=== PATIENT | female | born 1970 | race Caucasian/White ===

== ENCOUNTER 2017-11-20 21:42 | Outpatient (REF) | payer BC, SELFPAY ==
[2017-11-20 22:17] LABS: Hemoglobin A1C 5.6 % (4.5-6.2)
[2017-11-20 22:28] LABS: TSH 4.73 uIU/mL (0.358-3.74)
== END 2017-11-20 22:02 ==
LOC: NCHCN 21:42
PROVIDERS: PCP Family Medicine; Visit Provider Family Medicine
DX: E03.9 Hypothyroidism, unspecified (principal); E66.9 Obesity, unspecified
CPT/HCPCS: 83036; 84443

== ENCOUNTER 2018-02-03 15:14 | Outpatient (REF) | payer BC, SELFPAY ==
[2018-02-03 22:16] LABS: TSH 0.35 uIU/mL (0.358-3.74)
== END 2018-02-03 15:34 ==
LOC: NCHCN 15:14
PROVIDERS: PCP Family Medicine; Visit Provider Family Medicine
DX: E03.9 Hypothyroidism, unspecified (principal)
CPT/HCPCS: 84443

== ENCOUNTER 2018-05-20 09:36 | Outpatient (REF) | payer BC, SELFPAY ==
[2018-05-20 22:15] LABS: HCT 26.7 % (36.0-46.0); Mean Corp. HGB Concentration 26.2 g/dL (32.0-36.0); Mean Corpuscular Hemoglobin 17.2 pg (27.0-33.0); Mean Corpuscular Volume 65.8 fL (80-95); Mean Platelet Volume 11.3 fL (8.0-11.0); Platelet Count 386 x1000/uL (130-400); RBC 4.06 m/cumm (4.00-5.20); RBC Distribution Width 18.1 % (11.7-14.6)
[2018-05-20 22:32] LABS: TSH 0.91 uIU/mL (0.358-3.74)
[2018-05-20 23:01] LABS: Hemoglobin A1C 5.6 % (4.5-6.2)
== END 2018-05-20 09:56 ==
LOC: NCHCN 09:36
PROVIDERS: PCP Family Medicine; Visit Provider Family Medicine
DX: N92.0 Excessive and frequent menstruation with regular cycle (principal); E66.9 Obesity, unspecified; E03.9 Hypothyroidism, unspecified
CPT/HCPCS: 85027; 83036; 84443

== ENCOUNTER 2018-05-27 14:24 | Emergency (ER) | payer BC, SELFPAY ==
[2018-05-27] VITALS (17 sets, daily range): BP systolic 137–156; BP diastolic 81–87; PULSE 58–72; RESP 10–24; TEMP 36.7; O2SAT 96–100
[2018-05-27] MEDS: Lactated Ringers 1,000 ML 1000 ML IV (15:15)
--- NOTE | 2018-05-27 15:17 | ED.GENADUL_ITS ---
Discharge Plan Disposition Patient Disposition: HOME Condition: Improving Discharge Details Chief Complaint: Dizzy/Sync Clinical Impression: Anemia, Headache Primary Care Provider: Rony Stallings ED Provider: Jeremie Rg Home Meds and New Rx's Prescriptions: No Action bupropion HCl [Wellbutrin SR] 100 MG tablet extended release 12 hr 75 mg PO TID RF: 0 Iud RF: 0 levothyroxine 175 mcg Tablet 175 mcg PO 5XW RF: 0 aspirin [Aspir-81] 81 mg Tablet,Delayed Release (Dr/Ec) 81 mg PO DAILY RF: 0 levothyroxine 200 mcg Tablet 200 mcg PO Q2D RF: 0 ferrous sulfate 324 mg (65 mg iron) Tablet,Delayed Release (Dr/Ec) 324 mg PO BID RF: 0 Discharge Instructions Instructions: Anemia (ED), General Headache (ED) Additional Instructions: 1. Drink plenty of fluids. 2. Continue all medications as prescribed including iron supplements. 3. Acetaminophen 1000mg every 4 hours (up to 5 time a day) as needed for fever or pain. Return to the Emergency Department (ED) if your condition worsens, does not improve as expected, or for ANY other concerns. Specifically, return if you have new or uncontrolled pain, worsening fever, difficulty breathing, vomiting, or ar e unable to drink fluids. Medical Decision Making 47-year-old woman with a history of iron deficiency anemia and recent heavy menses referred for progressive weakness today associated with a recently low hemoglobin level. Had felt clinically improved after starting iron supplementation with improved ADLs. However, today has had a low-grade headache, mild vertigo, and is more fatigued than the previous 2 days. Nonfocal exam including a full normal neurological exam. Hemoglobin today improved at 7.9 (previous 7.0). Also clinically improved after receiving IV crystalloid and oral acetaminophen. Discharged home with a plan for continued iron supplementation, acetaminophen as needed, aggressive hydration, and outpatient follow-up. Pt evaluated immediately prior to discharge with improved symptoms, normal vital signs, and tolerating PO. The patient feels appropriate for discharge home. Discussed clinical/diagnostic findings. Discharged with a clear plan for outpatient follow up. Given usual and customary return instructions prior to discharge. Medical Records Medical records reviewed: Yes I reviewed the patient's medical records. Lab Data Lab results narrative: Laboratory Results - last 24 hr WBC 4.67 k/cumm (4.4-10.8) 05/27/18 15:13 RBC 4.27 m/cumm (4.00-5.20) 05/27/18 15:13 Hgb 7.9 g/dL (12.0-15.5) L 05/27/18 15:13 Hct 28.9 % (36.0-46.0) L 05/27/18 15:13 MCV 67.7 fL (80-95) L 05/27/18 15:13 MCH 18.5 pg (27.0-33.0) L 05/27/18 15:13 MCHC 27.3 g/dL (32.0-36.0) L 05/27/18 15:13 RDW 22.1 % (11.7-14.6) H 05/27/18 15:13 Plt Count 418 x1000/uL (130-400) H 05/27/18 15:13 MPV 10.5 fL (8.0-11.0) 05/27/18 15:13 Immature Gran % 0.4 05/27/18 15:13 Neutrophils % 54.2 05/27/18 15:13 Lymphocytes % 33.0 05/27/18 15:13 Monocytes % 8.4 05/27/18 15:13 Eosinophils % 3.4 05/27/18 15:13 Basophils % 0.6 05/27/18 15:13 Absolute Neutrophils 2.53 k/cumm (1.2-6.7) 05/27/18 15:13 Absolute Lymphocytes 1.54 k/cumm (1.2-3.4) 05/27/18 15:13 Absolute Monocytes 0.39 k/cumm (0.11-0.7) 05/27/18 15:13 Absolute Eosinophils 0.16 k/cumm (0.0-0.7) 05/27/18 15:13 Absolute Basophils 0.03 k/cumm (0.0-0.2) 05/27/18 15:13 RBC Morphology See below 05/27/18 15:13 Polychromasia Present 05/27/18 15:13 Hypochromasia 2+ 05/27/18 15:13 Anisocytosis 1+ 05/27/18 15:13 Microcytosis 2+ 05/27/18 15:13 Macrocytosis 1+ 05/27/18 15:13 Stomatocytes 2+ 05/27/18 15:13 HPI 47-year-old woman with a recent diagnosis of iron deficiency anemia. Had presented to her PCP with progressive fatigue and exertional limitation as well as 2 months of extremely heavy menses. Her evaluation had been significant for significant anemia and she was prescribed iron supplementation. Since starting this medication, she has felt clinically improved and noted decrease exertional limitation over the past 3 days. However today, she has a low-grade headache, mild vertigo, and feels more fatigued. She denies fever/chills, neck pain, focal extremity weakness, difficulty with gait, difficulty with speech. She has noted mild difficulty with vision over the past weeks associated with her anemia which felt subjectively worse. Denies dyspnea/cough, chest pain or palpitations, abdominal pain, change in bowel habits, or urinary symptoms. She complete her menses 1 week ago and has had no vaginal bleeding or spotting General Date/Time Provider Initiated Documentation: 05/27/18 14:53 . Related Data Home Medications Medication Instructions Recorded Confirmed Iud 08/31/15 bupropion HCl [Wellbutrin Sr] 75 mg PO TID 06/07/16 05/27/18 aspirin [Aspir-81] 81 mg PO DAILY 05/27/18 05/27/18 ferrous sulfate 324 mg PO BID 05/27/18 05/27/18 levothyroxine 175 mcg PO 5XW 05/27/18 05/27/18 levothyroxine 200 mcg PO Q2D 05/27/18 05/27/18 Allergies Allergy/AdvReac Type Severity Reaction Status Date / Time shellfish derived Allergy Unverified 05/27/18 14:40 General Stated Complaint: Dizzy/Sync STACY: 3 Review of Systems Review of Systems All systems are reviewed and are unremarkable except as noted in HPI and below: CONSTITUTIONAL: no fevers/chills, mild fatigue. EYES: no change in vision HEENT: no throat pain or difficulty swallowing; no neck pain CARDIOVASCULAR: no chest pain, palpitations, leg swelling, or diaphoresis RESPIRATORY: no cough, dyspnea, wheezing GASTROINTESTINAL: no abdominal pain, melena, nausea/emesis GENITOURINARY: no dysuria, flank pain, MUSCULOSKELETAL: no pack pain, myalgias, arthralgias INTEGUMENTARY: no rash, no wounds NEUROLOGIC: Mild generalized headache and subjective vertigo, no focal weakness, difficulty with speech, numbness, or difficulty with coordination PSYCHIATRIC: no confusion, no anxiety HEME: no easy bruising or bleeding ALLERGIC: no urticaria PFSH Social History Smoking/Tobacco Use Status: Never Drug use: Occasionally Substance use type: marijuana Do you feel safe at home: Yes Do you feel safe in your relationship?: Yes Exam Narrative Exam Narrative: Nursing note and vital signs have been reviewed and noted. GENERAL: alert, active, no acute distress, well -hydrated, well-nourished HEENT: atraumatic/normocephalic, PERRLA, EOMI, conjunctiva clear, external ears/canals normal, nasal mucosa normal NECK: supple, full range of motion, no mass, normal lymphadenopathy, no thyromegaly CARDIOVASCULAR: RRR, no murmurs, nl pulses, no edema PULMONARY: nl effort, no audible wheezing or stridor, nl breath sounds with no focal deficit. no chest wall tenderness ABDOMEN: soft, non-tender, non-distended, no mass, no organomegaly EXTREMITY: normal muscle tone, all joints with FROM, no deformity or tenderness SKIN: no exanthem appreciated NEURO: gross motor exam normal, normal stance and gait; negative Romberg, negative cerebellar. PSYCH: alert and oriented, Course Vital Signs Temperature 98.1 F 05/27/18 14:33 Pulse 65 05/27/18 14:33 Respiratory Rate 15 05/27/18 14:33 Blood Pressure 156/84 H 05/27/18 14:33 Pulse Oximetry 100 05/27/18 14:33 Temperature 98.1 F 05/27/18 14:33 Temperature Source Temporal Artery Scan 05/27/18 14:33 Pulse 65 05/27/18 14:33 Respiratory Rate 15 05/27/18 14:33 Respiratory Effort Non-Labored 05/27/18 14:39 Blood Pressure 156/84 H 05/27/18 14:33 Blood Pressure Position Supine 05/27/18 14:33 Pulse Oximetry 100 05/27/18 14:33 Oxygen Delivery Method Room Air 05/27/18 14:33 Oxygen Flow Rate 0 05/27/18 14:33 Pain Level 4 05/27/18 14:33
[2018-05-27] MEDS: Acetaminophen 325 MG TAB 1000 MG PO (15:20)
[2018-05-27 15:32] LABS: Abs Immature Grans 0.02 k/cumm (0.0-0.09); Absolute Basophil Count 0.03 k/cumm (0.0-0.2); Absolute Eosinophil Count 0.16 k/cumm (0.0-0.7); Absolute Lymphocyte Count 1.54 k/cumm (1.2-3.4); Absolute Monocyte Count 0.39 k/cumm (0.11-0.7); Absolute Neutrophil Count 2.53 k/cumm (1.2-6.7); Basophils % 0.6; Eosinophils % 3.4; HCT 28.9 % (36.0-46.0); HGB 7.9 g/dL (12.0-15.5); Immature Grans % 0.4; Mean Corp. HGB Concentration 27.3 g/dL (32.0-36.0); Mean Corpuscular Hemoglobin 18.5 pg (27.0-33.0); Mean Corpuscular Volume 67.7 fL (80-95); Mean Platelet Volume 10.5 fL (8.0-11.0); Monocytes % 8.4; Neutrophils % 54.2; Platelet Count 418 x1000/uL (130-400); RBC 4.27 m/cumm (4.00-5.20); RBC Distribution Width 22.1 % (11.7-14.6); White Blood Cell Count 4.67 k/cumm (4.4-10.8)
[2018-05-27 16:05] LABS: Anisocytosis 1+; Hypochromasia 2+; Macrocytosis 1+; Microcytosis 2+
[2018-05-27 16:06] LABS: Polychromasia Present; Stomatocytes 2+
== END 2018-05-27 16:33 | disposition home or self-care (01) ==
PROVIDERS: Emergency Provider Emergency Medicine; PCP Family Medicine
DX: D64.9 Anemia, unspecified (principal); R51 Headache
CPT/HCPCS: 36415; 96360; 99283; 85025

== ENCOUNTER 2018-06-11 09:42 | Outpatient (CLI) | payer BC, SELFPAY ==
[2018-06-11 10:14] LABS: HCT 37.2 % (36.0-46.0)
== END 2018-06-11 10:02 ==
PROVIDERS: PCP Family Medicine; Visit Provider Family Medicine
DX: N92.0 Excessive and frequent menstruation with regular cycle (principal)
CPT/HCPCS: 36415; 85014; 85018

== ENCOUNTER 2018-11-18 21:59 | Outpatient (REF) | payer BC, SELFPAY ==
[2018-11-18 21:44] LABS: HCT 35.3 % (36.0-46.0); HGB 10.9 g/dL (12.0-15.5); Mean Corp. HGB Concentration 30.9 g/dL (32.0-36.0); Mean Corpuscular Hemoglobin 24.7 pg (27.0-33.0); Mean Platelet Volume 10.8 fL (8.0-11.0); Platelet Count 353 x1000/uL (130-400); RBC 4.41 m/cumm (4.00-5.20); RBC Distribution Width 13.1 % (11.7-14.6); White Blood Cell Count 5.31 k/cumm (4.4-10.8)
[2018-11-18 22:25] LABS: ALT 25 U/L (14-59); AST 17 U/L (15-37); Albumin 3.5 g/dL (3.4-5.0); Alkaline Phosphatase 71 U/L (46-116); Anion Gap 5.2 mmol/L (3-11); BUN 16 mg/dL (7-18); Bilirubin, Total 0.3 mg/dL (0.2-1.0); CO2 27.8 mmol/L (21.0-32.0); CREATININE 0.82 mg/dL (0.55-1.02); Calcium 8.6 mg/dL (8.5-10.1); Calculated LDL 125 mg/dL; Chloride 104 mmol/L (98-107); Cholesterol 198 mg/dL (50-200); Glucose 101 mg/dL (70-100); HDL Cholesterol 47 mg/dL (40-60); Potassium 4.5 mmol/L (3.5-5.1); Sodium 137 mmol/L (136-145); TSH 2.93 uIU/mL (0.36-3.74); Total Protein 7.1 g/dL (6.4-8.2); Triglyceride 130 mg/dL (30-150)
== END 2018-11-18 22:19 ==
LOC: NCHCN 21:59
PROVIDERS: PCP Family Medicine; Visit Provider Family Medicine
DX: Z00.00 Encounter for general adult medical examination without abnormal findings (principal); E03.9 Hypothyroidism, unspecified; D64.9 Anemia, unspecified; E66.9 Obesity, unspecified
CPT/HCPCS: 80053; 80061; 85027; 84443

== ENCOUNTER 2018-11-24 00:59 | Outpatient (CLI) | payer BC, SELFPAY ==
--- NOTE | 2018-11-24 14:42 | DI.MAMMO_ITS ---
SYMPTOMS/DIAGNOSIS: SCREENING, Z12.31 MAMMOGRAM: Mammograms were interpreted according to the usual protocol including computer analysis with CAD system, tomosynthesis and C view imaging. The breast tissue is of moderate radiodensity. There is no evidence of a mass. There are no suspicious calcifications and there has been no significant interval change when compared with prior images. SUMMARY: No evidence of malignancy, category 1. Yearly screening mammography is recommended. Breast density category B. SA ASSESSMENT OF FINDINGS: Negative. Category 1. Patient will receive a letter notifying them of these results. BI-RADS category B. There are scattered areas of fibroglandular density.
== END 2018-11-24 01:19 ==
PROVIDERS: PCP Family Medicine; Visit Provider Family Medicine
DX: Z12.31 Encounter for screening mammogram for malignant neoplasm of breast (principal)
CPT/HCPCS: 77063; 77067

== ENCOUNTER 2019-07-28 16:37 | Outpatient (REF) | payer BC, SELFPAY ==
[2019-07-28 20:48] LABS: HCT 30.8 % (36.0-46.0); HGB 8.9 g/dL (12.0-15.5)
[2019-07-28 21:07] LABS: TSH 1.21 uIU/mL (0.36-3.74)
== END 2019-07-28 16:57 ==
LOC: NCHCN 16:37
PROVIDERS: PCP Family Medicine; Visit Provider Family Medicine
DX: E03.9 Hypothyroidism, unspecified (principal); D64.9 Anemia, unspecified; N92.0 Excessive and frequent menstruation with regular cycle
CPT/HCPCS: 84443; 85014; 85018

== ENCOUNTER 2019-09-07 01:45 | Outpatient (CLI) | payer BC, SELFPAY ==
--- NOTE | 2019-09-07 06:45 | DI.US_ITS ---
EXAM: US PELVIS TRANSVAGINAL CLINICAL HISTORY: dysfunctional uterine bleeding, N93.8. TECHNIQUE: Transabdominal and transvaginal pelvic ultrasound was performed using standard protocol. COMPARISON: No exams were available for comparison FINDINGS: KIDNEYS: Kidneys are symmetric in size. No evidence of renal calculi. No evidence of hydronephrosis. No renal mass or cyst identified. UTERUS: Position: Anteverted. Size: 12 long by 6.9 AP by 8.1 transverse cm Endometrium: 1.4 cm. There is a 0.7 x 0.6 cm echogenic nodule in the fundal aspect of the endometrium . This is suspicious for an endometrial polyp. An intrauterine device was not visualized on this ex amination. Myometrium: Heterogeneous myometrium with several hypoechoic masses present consistent with uterine f ibroids. Cervix: Nabothian cysts. OVARIES: Right: 3.5 x 2 x 1.7 cm Cyst or mass: 1.9 x 1.3 x 1.5 cm simple cyst. Left: 2.7 x 1.8 x 1.9 cm Cyst or mass: None. DOPPLER: Color: Symmetric and uniform flow to both ovaries. No hyperemia. Duplex: Normal ovarian arterial waveforms visualized. CUL-DE-SAC: Free fluid: Small amount of free fluid in the cul-de-sac and adjacent to the right ovary. Other: None. IMPRESSION: 1. Normal sonographic appearance of the kidneys. 2. Findings suspicious for 0.7 cm endometrial polyp. 3. Uterine fibroids. 4. 1.9 cm right ovarian cyst. 5. IUD not visualized on today's examination. DATA REPOSITORY:
== END 2019-09-07 02:05 ==
PROVIDERS: PCP Family Medicine; Visit Provider Obstetrics & Gynecology
DX: N93.8 Other specified abnormal uterine and vaginal bleeding (principal); D25.9 Leiomyoma of uterus, unspecified; N83.291 Other ovarian cyst, right side; N84.0 Polyp of corpus uteri
CPT/HCPCS: 76830; 76856

== ENCOUNTER 2019-09-08 15:53 | Outpatient (CLI) | payer BC, SELFPAY ==
--- NOTE | 2019-09-08 15:30 | DI.RAD_ITS ---
EXAM: 2D digital imaging was performed. CLINICAL HISTORY: Missing IUD, strings lost, [id number]. COMPARISON: No exams were available for comparison TECHNIQUE: Supine and uprightSupine and Lateral views of the abdomen was performed. FINDINGS: The lung bases are clear. No organomegaly is present. The bowel gas pattern is nonspecific without evidence of obstruction. No radiopaque foreign bodies are identified. An IUD is not visualized. Mi ld degenerative changes are seen in the lower lumbar spine. IMPRESSION: No evidence of an acute abdomen. DATA REPOSITORY: RADIATION DOSE DELIVERED:
== END 2019-09-08 16:13 ==
PROVIDERS: PCP Family Medicine; Visit Provider Obstetrics & Gynecology
DX: T83.32XA Displacement of intrauterine contraceptive device, initial encounter (principal)
CPT/HCPCS: 74019

== ENCOUNTER 2019-09-21 01:38 | Outpatient (CLI) | payer BC, SELFPAY ==
[2019-09-21 11:43] LABS: Mean Corpuscular Volume 68.8 fL (80-95); Mean Platelet Volume 9.7 fL (8.0-11.0); Platelet Count 406 x1000/uL (130-400); RBC 4.36 m/cumm (4.00-5.20); RBC Distribution Width 18.7 % (11.7-14.6); White Blood Cell Count 4.08 k/cumm (4.4-10.8)
[2019-09-21 11:45] LABS: HGB 8.7 g/dL (12.0-15.5)
== END 2019-09-21 01:58 ==
PROVIDERS: PCP Family Medicine; Visit Provider Obstetrics & Gynecology
DX: N93.8 Other specified abnormal uterine and vaginal bleeding (principal); D25.9 Leiomyoma of uterus, unspecified; N84.0 Polyp of corpus uteri; Z01.818 Encounter for other preprocedural examination; Z01.812 Encounter for preprocedural laboratory examination
CPT/HCPCS: 36415; 85027; 86850; 86900; 86901

== ENCOUNTER 2019-09-21 09:12 | Outpatient (CLI) | payer BC, SELFPAY ==
[2019-09-22 01:18] LABS: COVID-19 RT-PCR UVMMC Result Negative (Negative)
== END 2019-09-21 09:32 ==
PROVIDERS: PCP Family Medicine; Visit Provider Obstetrics & Gynecology
DX: Z01.818 Encounter for other preprocedural examination (principal); Z11.59 Encounter for screening for other viral diseases
CPT/HCPCS: U0003

== ENCOUNTER 2019-09-23 07:39 | Day surgery (SDC) | payer BC, SELFPAY ==
[2019-09-23 07:45] VITALS: BP 134/83; PULSE 72; RESP 18; TEMP 36.6; O2SAT 99
[2019-09-23] MEDS: Lactated Ringers 1,000 ML 125 ML IV (08:10)
[2019-09-23] MEDS: Lidocaine 2% Jelly 6 ML SYR (09:45)
--- NOTE | 2019-09-23 09:51 | CER_PTH ---
PATIENT: Miya Okeefe LOC: [facility] U#:[id number] AGE/SX: 48/F ROOM: RE09/23/[address]: Lois Carey DO : 1970 BED: DIS: 09/23/2019 SPEC #: [id number] RECD: 09/23/19 12:14 STATUS: TOSHA RE #: [id number] FRANK: 09/23/19 09:[address]: Lois Carey DEPT: Surgical Specimen RECD BY: Soraya Melgoza ENTERED: 09/23/19 12:17 SP TYPE: CER OTHR DR: Rony Stallings Tissues: 1 - CERVICAL BIOPSY 2 - ENDOCERVICAL BX/CURRETTE 3 - ENDOMETRIUM BX/CURRETTE Procedures: GROSS AND MICRO LEVEL 4 Comments: [id number]
--- NOTE | 2019-09-23 10:08 | W.PM.OP ---
Date of service: 09/23/19 Time of Service: 10:08 Operative Note Operative Note DATE OF PROCEDURE: 09/23/19 PRE-OP DIAGNOSIS: Abnormal uterine bleeding, Fibroid uterus, cervical polyp, anemia POST-OP DIAGNOSIS: same PROCEDURE: Cervical polypectomy. Hysterosopcy with dilation and curettage SURGEON: Lois Carey ANESTHESIA: MAC ESTIMATED BLOOD LOSS: 10 PATHOLOGY: other (1. Cervical polyp 2. Endocervical curettage 3. Endometrial curettage) COMPLICATIONS: None Patient was transported to: PACU Patient's condition: stable Indications: Abnormal uterine bleeding, uterine fibroids, cervical polyp, symptomatic anemia Findings: Broad-based cervical polyp, normal endocervical canal, plush endometrium, bulky uterus approximately 10 to 12 weeks size with multiple uterine fibroids Procedure Description: Risks and benefits of surgical procedure explained to the patient in full informed consent was obtained preoperatively. She was taken there operating suite with an IV running where she is placed in the knee dorsal supine position and anesthesia administered via monitored anesthesia care. She was then placed in the modified dorsal lithotomy position and prepped and draped in usual sterile fashion with legs in yellowfin stirrups. At this point exam under anesthesia revealed a bulky uterus that was approximately 10 to 12 weeks size mobile and irregular. Bladder was drained for approximately 100 cc of clear yellow urine. Speculum was placed in the vaginal vault. Cervical polyp identified and with electrocautery at 40 polyp was excised. Base the polyp was cauterized and hemostatic. At this point cervical loss dilated to the point that a 5 mm flexible hysteroscope could be passed with ease. With saline installation and expection of the endometrial cavity the cavity was noted to be irregular and distorted due to intramural uterine fibroids. Cavity itself remained relatively smooth surfaced with no evidence of endometrial polyps noted. At this point sharp endocervical curettage was performed followed by sharp endometrial curettage. There was reinspection of the cervical polypectomy base which was again cauterized with electrocautery and found to be hemostatic. At this point single-tooth tenaculum and speculum were both removed patient returned to the dorsal supine position and woke from anesthesia with ease. She is taken to recovery room in stable condition. EBL: 10 cc Complications: None apparent Specimens: 1. Endocervical polyp 2. Endocervical curettage 3. Endometrial curettage
[2019-09-23 10:49] VITALS: BP 130/87; PULSE 58; RESP 16; TEMP 36.2; O2SAT 100
== END 2019-09-23 11:35 | disposition home or self-care (01) ==
PROVIDERS: PCP Family Medicine; Visit Provider Obstetrics & Gynecology
PROC: 0UDB8ZZ Extraction of Endometrium, Via Natural or Artificial Opening Endoscopic (ICD-10-PCS; CPT 58558; principal; 2019-09-23 14:00)
DX: N93.8 Other specified abnormal uterine and vaginal bleeding (principal); N84.1 Polyp of cervix uteri; N84.0 Polyp of corpus uteri; D25.1 Intramural leiomyoma of uterus; D64.9 Anemia, unspecified
CPT/HCPCS: 58558; 81025; 88305; J1100; J2001; J2250; J2405; J3010

== ENCOUNTER 2019-10-23 03:38 | Outpatient (CLI) | payer BC, SELFPAY ==
[2019-10-23 14:13] LABS: HCT 33.4 % (36.0-46.0); HGB 9.5 g/dL (11.2-15.7); MCH 20.1 pg (27.0-33.0); MCHC 28.4 % (32.0-36.0); MCV 70.8 fL (80-95); MPV 10.1 fL (8.0-11.0); Platelet Count 408 10^3/uL (130-400); RBC 4.72 10^6/uL (3.93-5.22); RDW 17.6 % (11.7-14.6); RDW-SD 44.3 fL; WBC 6.65 10^3/uL (4.4-10.8)
[2019-10-23 14:28] LABS: HCG Qual (Urine) Negative
== END 2019-10-23 03:58 ==
PROVIDERS: PCP Family Medicine; Visit Provider Obstetrics & Gynecology
DX: Z01.818 Encounter for other preprocedural examination (principal)
CPT/HCPCS: 36415; 85027; 86850; 86900; 86901; 81025

== ENCOUNTER 2019-10-24 07:28 | Outpatient (CLI) | payer BC, SELFPAY ==
[2019-10-26 15:26] LABS: COVID-19 RT-PCR Result NEGATIVE (Negative)
== END 2019-10-24 07:48 ==
PROVIDERS: PCP Family Medicine; Visit Provider Obstetrics & Gynecology
DX: Z01.818 Encounter for other preprocedural examination (principal)
CPT/HCPCS: U0003

== ENCOUNTER 2019-10-28 13:06 | Observation (INO) | payer BC, SELFPAY ==
[2019-10-28] VITALS (15 sets, daily range): BP systolic 90–152; BP diastolic 34–89; PULSE 50–69; RESP 12–19; TEMP 36.5–36.8; O2SAT 94–100
[2019-10-28] MEDS: Lactated Ringers 1,000 ML 125 ML IV (09:07)
[2019-10-28] MEDS: ceFAZolin 2 GM/50 ML BAG IVPB (09:13)
[2019-10-28] MEDS: Bupivacaine 0.25% Pres-Free 30 ML VIAL (09:38)
--- NOTE | 2019-10-28 12:07 | UTER_PTH ---
PATIENT: Miya Okeefe LOC: [facility] U#:[id number] AGE/SX: 48/F ROOM: OBS.306 RE10/28/[address]: Lois Carey DO : 1970 BED: A DIS: 10/29/2019 SPEC #: [id number] RECD: 10/28/19 17:45 STATUS: SOUT REQ #: [id number] FRANK: 10/28/19 12:[address]: Lois Carey DEPT: Surgical Specimen RECD BY: Prema Dawkins ENTERED: 10/28/19 17:46 SP TYPE: UTER OTHR DR: Rony Stallings Tissues: 1 - UTERUS W OR W/O OVARIES(NOT TUMOR/PROLAPSE) Procedures: GROSS AND MICRO LEVEL 5 Comments: [id number]
--- NOTE | 2019-10-28 13:12 | DI.RAD_ITS ---
EXAM: 2D digital imaging was performed. CLINICAL HISTORY: INCORRECT COUNT. COMPARISON: No exams were available for comparison TECHNIQUE: Supine views of the abdomen performed. FINDINGS: BOWEL GAS PATTERN: Nondistended. Presumed postsurgical air seen in the low pelvis. CALCIFICATIONS: No radiopaque calcifications. OSSEOUS STRUCTURES: Normal for age. OTHER FINDINGS: No retained surgical instruments are visible. IMPRESSION: No evidence retained surgical instrument or other radiopaque foreign body. DATA REPOSITORY: RADIATION DOSE DELIVERED:
--- NOTE | 2019-10-28 13:50 | W.PM.OP ---
Date of service: 10/28/19 Time of Service: 13:50 Operative Note Operative Note DATE OF PROCEDURE: 10/28/19 PRE-OP DIAGNOSIS: Fibroid uterus, abnormal uterine bleeding, symptomatic anemia POST-OP DIAGNOSIS: same PROCEDURE: Laparoscopically assisted vaginal hysterectomy with bilateral salpingectomy and intraoperative cystoscopy SURGEON: Lois Carey ASSISTING SURGEON: Robert Lockhart ANESTHESIA: GETA ESTIMATED BLOOD LOSS: 200 PATHOLOGY: other (Uterus and bilateral fallopian tubes) COMPLICATIONS: None Patient was transported to: PACU Patient's condition: stable Implants: None Indications: Symptomatic uterine fibroids with abnormal uterine bleeding and symptomatic anemia Findings: 12 weeks size bulky fibroid uterus normal-appearing fallopian tubes bilaterally, normal-appearing ovaries bilaterally Procedure Description: Patient is a 48-year-old female with ongoing heavy uterine bleeding. She had previously had a Mirena IUD and this had apparently been expelled. Her uterus was noted to be approximately 10 to 12 weeks size. She had a preoperative hysteroscopy with dilation and curettage for endometrial sampling which was benign. She requested definitive therapy. She had ongoing heavy bleeding with symptomatic anemia and a ab of hemoglobin to 8.7. Risk benefits and alternatives of the procedure have been explained to the patient including risk of infection, bleeding, injury to surrounding organs, risk of anesthesia, risk of thromboembolic event, need for open laparotomy. Full informed consent was obtained. Patient was taken the operating suite with an IV running where she was placed in the dorsal supine position after intrathecal narcotics placed for postoperative pain control. She had endotracheal intubation for performed for the administration of general anesthesia with ease. She was then placed in the modified dorsal lithotomy position and prepped and draped in the usual sterile fashion. Kapoor catheter was inserted for continuous bladder drainage. Exam under anesthesia revealed a 10 to 12-week size bulky uterus that was moderately mobile. At this point weighted speculum was placed in the posterior vaginal vault and single-tooth tenaculum used to grasp the anterior lip of the cervix. A [employer] uterine manipulator was placed inside into the uterus with cup inserted around the cervix. Tenaculum and weighted speculum were then removed and attention was turned to the abdomen. At this point quarter percent Marcaine with epinephrine was used to infiltrate at the umbilicus and a 10 mm vertical umbilical incision was made. The fascia was then identified tented up and entered sharply and a Martinez trocar was placed within. Camera inserted and CO2 gas used to insufflate to a maximum pressure of 15 mmHg. Visualizing the abdomen and pelvis, the uterus was noted to be globular, approximately 10 to 12 weeks size, though moderately mobile. Fallopian tubes appeared normal bilaterally as did the ovaries. There was noted to be endometriosis implants along the left broad ligament posterior to the uterus. Appendix appeared normal. Remainder of the abdomen was atraumatic. At this point a second and third right and left lower quadrant trocar sites were placed under direct visualization after infiltration with quarter percent Marcaine. This allowed instrumentation to be placed into the abdomen. The abdomen again inspected and found to be hemostatic. The uterus was then elevated and the right fallopian tube identified tented up and suspensory ligament was cauterized and transected. The left round ligament was identified cauterized and transected allowing exposure to the left broad ligament anterior and posterior leaf. The left utero-ovarian ligament was also identified cautery transected. Anterior leaf of the broad ligament was then elevated and the bladder flap was created. Similar procedure was carried out on the right fallopian tube, right round ligament, and right broad ligament. The vesicouterine peritoneum was identified tented up and with both meticulous sharp and blunt dissection of the bladder flap was then created. Due to the with ingrowth of the uterus decision was made to transect uterine pedicles and vessels from a vaginal approach. At this point CO2 gas was discontinued and attention was turned to the vaginal vault. Weighted speculum was placed into the posterior vaginal vault the anterior and posterior lips of the cervix were grasped with a Pari clamp and a circumferential incision was made at the cervical vaginal interface. There is a slight amount of difficulty entering the posterior cul-de-sac and attention was returned to the anterior cul-de-sac which was entered sharply. Uterosacral cardinal complex ligaments were clamped transected and ligated and with modest amount of effort posterior cul-de-sac was then entered. The uterine artery pedicles were then clamped transected and ligated in a systematic fashion around the bulky lower uterine segment of the uterus. Due to the size of the uterus itself the uterus was morcellated intravaginally in order to allow delivery of the uterus through the vaginal vault. At this point pedicles were inspected and found to be hemostatic the vaginal cuff was closed using 0 Vicryl suture in a running locked fashion. Cystoscopic examination was then performed of the bladder after indigo carmine was placed intravascularly. Both ureteric orifices were noted and spilling blue-tinged urine efficiently there was no evidence of trauma or damage to the bladder itself. Cystoscopy was then discontinued. At this point attention was then returned to the abdomen where pneumoperitoneum re-created with a maximum pressure of 15 mmHg all pedicles were inspected there was one pedicle at the left uterine artery complex which had a mild amount of ooze which was cauterized and found to be hemostatic. Abdomen was then irrigated with copious amounts of normal saline all pedicles again reinspected at low pressure of 5 mmHg and noted to be hemostatic. At this point the procedure was terminated CO2 gas discontinued and abdomen desufflated. All instruments were removed from the abdomen fascial incision was then closed with the Vicryl ties placed for the Martinez skin incisions were then closed with 4-0 Vicryl suture and Steri-Strips. Patient was returned to the dorsal supine position. During the postprocedural counts there was noted to be 1 forcep that was not accounted for and a postoperative x-ray ordered. There was no evidence of retained foreign body present on x-ray films and may estimation was that this was the initial miscount of instrumentation. At this point patient was returned to the post anesthesia care unit with a Kapoor catheter draining blue-tinged urine in stable condition.
[2019-10-28] MEDS: Lactated Ringers 1,000 ML 80 ML IV (14:20)
--- NOTE | 2019-10-28 17:54 | W.PM.PROGNOT ---
Date of Service Date of service: 10/28/19 Time of Service: 17:54 Assessment and Plan Assessment and plan (1) S/P laparoscopic assisted vaginal hysterectomy (LAVH): Status: Acute Assessment and plan: Postop day #0 status post laparoscopically assisted vaginal hysterectomy with bilateral salpingectomy for enlarged fibroid uterus, abnormal uterine bleeding, and symptomatic anemia. She is doing well. She will be seen again tomorrow morning. She will have routine postoperative care with progressive ambulation, advancement of diet, and pain control as needed. If she continues to progress in a normal course my anticipation would be for discharge home tomorrow. Subjective Subjective Interval history since last seen: Patient seen this evening after her surgery. She is feeling great. She has no pain. Her vital signs are stable. Her urine output is adequate. She has ordered a regular diet for dinner tonight. Overall she is doing well. Exam Narrative Exam Narrative: Miya is alert and oriented with stable vital signs. She is having no concerns. Compression stockings are in place and working effectively. She will ambulate later today. Kapoor catheter will be removed tomorrow. Objective Objective Clinical Data: Vital Signs Temperature 98.2 F 10/28/19 16:27 Temperature Source Oral 10/28/19 16:27 Pulse 51 L 10/28/19 17:29 Pulse Rhythm Regular 10/28/19 07:49 Respiratory Rate 16 10/28/19 17:29 Respiratory Depth Normal 10/28/19 07:49 Blood Pressure 113/63 10/28/19 17:29 Pulse Oximetry 98 10/28/19 17:29 Respiratory End-tidal CO2 34 10/28/19 14:20 Oxygen Delivery Method Room Air 10/28/19 17:29 Oxygen Flow Rate 0 10/28/19 17:29 Pain Level 0 10/28/19 17:29 Intake & Output 10/27/19 10/28/19 10/28/19 23:59 11:59 23:59 Intake Total 50 / 970 920 / 970 Output Total 250 / 250 Balance 50 / 720 670 / 720 Weight 216 lb 7.903 oz Intake: IV 50 / 950 900 / 950 Oral Output: Estimated Blood Loss 250 / 250 Other: Urine Color Yellow Urine Appearance Clear Emesis Description None
[2019-10-28] MEDS: Docusate Sodium 100 MG CAP PO (19:07)
[2019-10-28] MEDS: Ketorolac 30 MG/ML VIAL IVP (19:07)
[2019-10-29] MEDS: Ketorolac 30 MG/ML VIAL IVP ×2 (01:21→06:20)
[2019-10-29 01:49] VITALS: BP 112/57; PULSE 64; RESP 18; TEMP 36.6; O2SAT 100
[2019-10-29] MEDS: Normal Saline Flush 10 ML SYR IV (06:21)
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
--- NOTE | 2019-10-29 07:44 | W.PM.DS.N ---
Date of service: 10/29/19 Time of Service: 07:44 DS: Diagnosis Discharge Diagnosis (1) S/P laparoscopic assisted vaginal hysterectomy (LAVH): Status: Acute Discharge Plan Disposition Patient Disposition: HOME Condition: Good Discharge Details Reason For Visit: LAVH Admit Date/Time: 10/28/19 13:06 Admit Provider: Lois Carey Attending Provider: Lois Carey Primary Care Provider: Rony Stallings Hospital Course Hospital Course: Patient was admitted for laparoscopically assisted vaginal hysterectomy with bilateral salpingectomy for bulky fibroid uterus, pelvic discomfort, abnormal uterine bleeding, and symptomatic anemia. Her surgical procedure was uncomplicated. She had a remote unremarkable postoperative course and was discharged home postoperative day #1, ambulating, tolerating regular diet and oral pain medication. Home Meds and New Rx's Prescriptions: New docusate sodium [Colace] 100 mg capsule 100 mg PO DAILY Qty: 30 RF: 0 hydrocodone-acetaminophen [Crawford] 5-325 mg tablet 1 tab PO Q8H PRN (Reason: pain) Qty: 14 RF: 0 Continued ferrous sulfate 325 mg (65 mg iron) tablet 325 mg PO DAILY PRNRF: 0 bupropion HCl [Wellbutrin SR] 100 mg tablet sustained-release 12 hr 75 mg PO TID PRNRF: 0 levothyroxine 200 mcg tablet 200 mcg PO DAILY RF: 0 acetaminophen 500 mg Tablet 500 mg PO PRN PRNRF: 0 ibuprofen 600 mg Tablet 600 mg PO PRN PRNRF: 0 ibuprofen 800 mg tablet 800 mg PO Q8H PRNQty: 20 RF: 0 Discontinued norethindrone acetate [Aygestin] 5 mg tablet 5 mg PO DAILY Qty: 60 RF: 0 Discharge Instructions Instructions: Hysteroscopy (DC) Activity:: Activity as Tolerated Equipment/Supplies:: No Equipment Needed Diet:: Normal Diet Discharge Orders Discharge Orders: Discharge Order (Routine); Ordered 10/29/19 Ordered By: Lois Carey Discharge Data Discharge Comment: [facility]up with [facility] 2 weeks. DS: Summary Status at Discharge Functional status at discharge: independent ambulation Overall status at discharge: patient is back to baseline Mental Status: mental status grossly normal Speech and Movement: speech and movement normal Mood: congruent mood Affect: normal affect Exam Narrative Exam Narrative: See progress note dated today Psych Mental Status: mental status grossly normal Speech and Movement: speech and movement normal Mood: congruent mood Affect: normal affect DS: Data Vitals/I&O Vitals and I&O: Vital Signs Temperature 98 F 10/29/19 01:49 Temperature Source Tympanic 10/29/19 01:49 Pulse 64 10/29/19 01:49 Pulse Rhythm Regular 10/28/19 20:23 Respiratory Rate 18 10/29/19 01:49 Respiratory Effort 10/28/19 20:23 Respiratory Depth Normal 10/28/19 20:23 Respiratory Pattern Normal 10/28/19 20:23 Blood Pressure 112/57 L 10/29/19 01:49 Pulse Oximetry 100 10/29/19 01:49 Respiratory End-tidal CO2 34 10/28/19 14:20 Oxygen Delivery Method Room Air 10/29/19 01:49 Oxygen Flow Rate 0 10/29/19 01:49 Pain Level 2 10/29/19 06:20 Intake & Output 10/28/19 10/28/19 10/29/19 11:59 23:59 11:59 Intake Total 50 / 1070 1020 / 1070 1785 / 1785 Output Total 250 / 250 1200 / 1200 Balance 50 / 820 770 / 820 585 / 585 Weight 216 lb 7.903 oz Intake: IV 50 / 950 900 / 950 785 / 785 Oral 120 / 120 1000 / 1000 Output: Urine 1200 / 1200 Estimated Blood Loss 250 / 250 Other: Urine Color Yellow Pale Urine Appearance Clear Clear Emesis Description None PFSH Medical History Depression (Chronic) DUB (dysfunctional uterine bleeding) (Acute) Endocervical polyp (Acute) Endometrial polyp (Acute) Hypoglycemia (Acute) Hypothyroidism (Chronic) IUD complication (Acute) IUD contraception (Acute) Pre-op testing (Acute) Sebaceous cyst (Acute) scalp, removed 09/15/18 Dr Lilibeth Garrison, no path sent Uterine fibroid (Acute) Surgical History (Updated 10/28/19 @ 17:56 by Lois Carey DO) History of dilatation and curettage (Acute) S/P laparoscopic assisted vaginal hysterectomy (LAVH) (Acute) Social History Smoking/Tobacco Use Status: Never Alcohol Intake: current Alcohol Intake frequency: a few times a month Alcohol type: wine Drug use: Occasionally Substance use type: marijuana Do you feel safe at home: Yes Do you feel safe in your relationship?: Yes
[2019-10-29 07:45] VITALS: BP 125/77; PULSE 48; RESP 16; TEMP 37.6; O2SAT 100
[2019-10-29] MEDS: Docusate Sodium 100 MG CAP PO (08:45)
== END 2019-10-29 09:40 | disposition home or self-care (01) ==
LOC: OBS 16:35
PROVIDERS: Admitting Provider Obstetrics & Gynecology; PCP Family Medicine; Visit Provider Obstetrics & Gynecology
PROC: 0UT9FZZ Resection of Uterus, Via Natural or Artificial Opening With Percutaneous Endoscopic Assistance (ICD-10-PCS; CPT 58554; principal; 2019-10-28 09:00)
DX: N93.8 Other specified abnormal uterine and vaginal bleeding (principal); D50.0 Iron deficiency anemia secondary to blood loss (chronic); D25.2 Subserosal leiomyoma of uterus; N83.8 Other noninflammatory disorders of ovary, fallopian tube and broad ligament; N72 Inflammatory disease of cervix uteri; Z90.710 Acquired absence of both cervix and uterus
CPT/HCPCS: 58554; 99232; 99238; 74018; 88307; J0690; J1100; J1885; J2001; J2250; J2405; J2704; J3010

== ENCOUNTER 2019-11-24 10:32 | Outpatient (REF) | payer BC, SELFPAY ==
[2019-11-24 21:27] LABS: HCT 34.1 % (36.0-46.0); HGB 9.4 g/dL (11.2-15.7); MCH 19.3 pg (27.0-33.0); MCHC 27.6 % (32.0-36.0); Platelet Count 381 10^3/uL (130-400); RBC 4.87 10^6/uL (3.93-5.22); RDW 16.3 % (11.7-14.6); RDW-SD 41.2 fL; WBC 4.64 10^3/uL (4.4-10.8)
[2019-11-24 21:48] LABS: CREATININE 0.85 mg/dL (0.55-1.02); Glucose 101 mg/dL (74-106); TSH 0.26 uIU/mL (0.36-3.74)
[2019-11-25 17:32] LABS: Hemoglobin A1C 5.7 % (<5.7)
== END 2019-11-24 10:52 ==
LOC: NCHCN 10:32
PROVIDERS: PCP Family Medicine; Visit Provider Family Medicine
DX: Z00.00 Encounter for general adult medical examination without abnormal findings (principal); E03.9 Hypothyroidism, unspecified; R73.01 Impaired fasting glucose; D64.9 Anemia, unspecified
CPT/HCPCS: 82947; 85027; 82565; 83036; 84443

== ENCOUNTER 2020-02-29 02:15 | Outpatient (CLI) | payer BC, SELFPAY ==
[2020-02-29 11:40] LABS: HGB 14.6 g/dL (11.2-15.7)
[2020-02-29 11:58] LABS: Hemoglobin A1C 5.3 % (<5.7)
[2020-02-29 12:28] LABS: TSH 5.36 uIU/mL (0.36-3.74)
== END 2020-02-29 02:35 ==
PROVIDERS: PCP Family Medicine; Visit Provider Family Medicine
DX: D64.9 Anemia, unspecified (principal); E03.9 Hypothyroidism, unspecified; R73.01 Impaired fasting glucose
CPT/HCPCS: 36415; 83036; 84443; 85014; 85018

== ENCOUNTER 2020-11-18 14:33 | Outpatient (REF) | payer BC, SELFPAY ==
[2020-11-18 14:59] LABS: Hemoglobin A1C 5.2 % (<5.7)
[2020-11-18 15:08] LABS: ALT 23 U/L (14-59); AST 15 U/L (15-37); Albumin 3.5 g/dL (3.4-5.0); Alkaline Phosphatase 73 U/L (46-116); Anion Gap 10.4 mmol/L (3-11); BUN 17 mg/dL (7-18); Bilirubin, Total 0.5 mg/dL (0.2-1.0); CO2 23.6 mmol/L (21.0-32.0); CREATININE 0.8 mg/dL (0.55-1.02); Calcium 8.8 mg/dL (8.5-10.1); Calculated LDL 145 mg/dL (<100); Chloride 104 mmol/L (98-107); Cholesterol 219 mg/dL (<200); Glucose 105 mg/dL (74-106); HDL Cholesterol 49 mg/dL (40-60); Potassium 4.1 mmol/L (3.5-5.1); Sodium 138 mmol/L (136-145); TSH 0.32 uIU/mL (0.36-3.74); Total Protein 7.1 g/dL (6.4-8.2); Triglyceride 125 mg/dL (<150)
== END 2020-11-18 14:34 | disposition home or self-care (01) ==
LOC: NCHCN 14:33
PROVIDERS: PCP Family Medicine; Visit Provider Family Medicine
DX: E03.9 Hypothyroidism, unspecified (principal); E66.9 Obesity, unspecified; R73.01 Impaired fasting glucose; Z00.00 Encounter for general adult medical examination without abnormal findings
CPT/HCPCS: 80053; 80061; 83036; 84443

== ENCOUNTER 2021-08-11 08:58 | Day surgery (SDC) | payer BC, SELFPAY ==
--- NOTE | 2021-08-10 20:26 | PDOC.DSDIS_ITS ---
Discharge Plan Disposition Patient Disposition: HOME Condition: Good Discharge Details Reason For Visit: colon scope Attending Provider: Madhavi Richards Primary Care Provider: Rony Stallings Home Meds and New Rx's Prescriptions: Continued levothyroxine 200 mcg capsule 200 mcg PO .complex Rx Instructions: one tab by mouth Saturday, Saturday, , Saturday bupropion HCl 75 mg tablet 75 mg PO BID Rx Instructions: administer 6 hours apart ibuprofen 800 mg tablet 800 mg PO Q8H PRNQty: 20 0RF Discontinued bisacodyl [Dulcolax (bisacodyl)] 5 mg tablet,delayed release (DR/EC) 5 mg PO ONCE Qty: 4 0RF Rx Instructions: Take according to provider's instructions for colonoscopy prep. polyethylene glycol 3350 17 gram/dose powder 17 g PO ONCE Qty: 238 0RF Rx Instructions: To be taken as directed by prescriber's office for colonoscopy prep. Discharge Instructions Additional Instructions: DSU Colonoscopy Post- Op Instructions Instructions for Everyone who is given Anesthesia: For your safety, please do the following for the next twenty-four (24) hours: *Do Not operate a motor vehicle (car, truck, motorcycle, etc.) *Do Not drink alcoholic beverages or use any recreational drugs for the first 24 hours or while taking pain medications. The medications in your body may have a reaction that can be dangerous. *Do Not make any important decisions or sign any important papers. Findings: Normal Follow up: Repeat in 10 yrs time 1. No lifting over 20 pounds or strenuous activity for the first 24 hours after your procedure. After 24 hours there are no restrictions on your activity but you may feel fatigued for a few days. 2. After you arrive home you may have a light meal and return to your normal diet as you can tolerate it without feeling sick to your stomach. 3. You may have a bloated, gaseous feeling in your belly (abdomen) after a colonoscopy. Passing gas and belching will help. Walking or lying down on your left side with your knees flexed may relieve the discomfort. Call the office at [phone] (Office) or [phone] (Hospital) right away if you notice any of the following: a.Vomiting of blood or ?coffee ground stools?. b.Rectal bleeding 1Tbsp, blood clots or continuous bleeding. c.Severe belly (abdominal) pain. d.A hard distended belly (abdomen) and an inability to pass gas. 4. Please don?t expect to have a normal BM (bowel movement) for 2-3 days after your procedure. 5. If there are questions regarding the findings of your procedure, please contact your doctor 6. If you are unable to contact your doctor with a problem, contact the hospital at [phone]. 7. Continue all your regular medications unless directed otherwise. I understand the above instructions and have no questions. Signature of Patient or Adult Escort Name of Responsible Adult Escort Signature of Nurse Date/Time Activity:: See above Diet:: See above Discharge Orders Discharge Orders: Discharge Order (Routine); Ordered 08/10/21 Ordered By: Madhavi Richards
--- NOTE | 2021-08-10 20:26 | W.COLOREPORT ---
Colonoscopy Report Date of procedure: 08/11/21 Pre-op diagnosis general: CRC screening/pelvic pain/s/p LAVH Post-op diagnosis procedure note: same Surgeon: Madhavi Richards Anesthesia Type: General:No Airway Estimated blood loss (mL): 0 Pathology: none sent Complications: None Disposition: same day Prep: Miralax/Dulcolax Retraction Time: 9 Procedure Description: After informed consent was obtained the patient was taken to the procedure room and placed in a left decubitous position. Monitors were applied and a time out was done. The patients name, date of , procedure, allergies to medications and metal in their body was reviewed. The patient was then sedated. Once sedated and comfortable a rectal exam was done. External exam was normal. Internal exam revealed a normal sphincter tone and no palpable masses. The scope was then introduced and retrofelexed. No internal hemorrhoids were identified. The scope was then advanced to the cecum without difficulty. The TI and appendiceal orifice were identified. The prep was the BPS 2 in all kennedy for total of 6. The colon was lavaged with 2 L of fluid. the scope was then slowly retracted over 9 minutes back into the rectum. there are no polyps or AVMs visualized today. She has 1 or 2 small diverticula of no consequence in the sigmoid colon. the scope was removed and the patient was woken up and taken back to Same day surgery in stable condition. The patient tolerated the procedure well and there were no immediate complications. Follow up: The patient should follow up in 10 years unless they develop changes in bowel habits or other new gastrointestinal complaints.
[2021-08-11 09:16] VITALS: BP 142/89; PULSE 59; RESP 17; TEMP 36.7; O2SAT 97
[2021-08-11] MEDS: Lactated Ringers 1,000 ML 80 ML IV (09:39)
--- NOTE | 2021-08-11 09:50 | W.ANESPRE ---
General Info Date of Service Date Performed: 08/11/21 Height: 5 ft 8 in Weight: 106.7 kg Body Mass Index (BMI): 35.7 Surgical Procedure: Operation Date: 08/11/21 09:50 Proposed Procedure Side Surgeon laurel Richards, Meds Allergies and Home Medications Allergies Allergy/AdvReac Type Severity Reaction Status Date / Time shellfish derived Allergy Verified 08/11/21 09:24 Home Medication Medication Instructions Recorded ibuprofen 800 mg tablet 800 mg PO Q8H PRN #20 tabs 09/23/19 bupropion HCl 75 mg tablet 75 mg PO BID 01/11/21 levothyroxine 200 mcg capsule 200 mcg PO .complex 01/11/21 Current Visit Medications: Current Medications Generic Name Dose Route Start Last Admin Trade Name Freq PRN Reason Stop Dose Admin Hyoscyamine Sulfate 0.125 mg 08/10/21 13:25 Hyoscyamine 0.125 Mg Sl/Oral/Chew SL DIRECTED PRN Ringer's Solution 1,000 mls @ 80 mls/hr 08/11/21 06:00 08/11/21 09:39 IV 09/07/21 23:59 80 mls/hr INFUSION MOHINDER Administration IV Miscellaneous Supplies 1 each 08/11/21 06:00 Iv Access IV 09/07/21 23:59 DIRECTED MOHINDER Ondansetron HCl 4 mg 08/10/21 13:25 Ondansetron 4 Mg/2 Ml Vial IVP Q4H PRN PRN Nausea / Vomiting Sodium Chloride 0 ml 08/11/21 06:00 Normal Saline Flush 10 Ml Syr IV 09/07/21 23:59 PRN PRN Sodium Chloride 0 ml 08/11/21 06:00 Normal Saline 10 Ml Vial IJ 09/07/21 23:59 DIRECTED PRN Sterile Water 0 ml 08/11/21 06:00 Water,Injection,Sterile 10 Ml Vial IJ 09/07/21 23:59 DIRECTED PRN PFSH Active Problems Active Problems: Problem Status Onset Code Screening for colon cancer Z12.11 Medical History Medical History Anemia Depression DUB (dysfunctional uterine bleeding) Endocervical polyp Endometrial polyp Hypoglycemia Hypothyroidism Impaired fasting glucose IUD complication IUD contraception Obesity (BMI 30.0-34.9) Pelvic pain Pre-op testing Sebaceous cyst scalp, removed 09/15/18 Dr Lilibeth Garrison, no path sent Urine blood Uterine fibroid Medical History Comments:: Pt. states her body responds faster to anesthesia Surgical History Surgical History History of dilatation and curettage 4 procedures History of hysteroscopy S/P laparoscopic assisted vaginal hysterectomy (LAVH) Tobacco Smoking/Tobacco Use Status: Never Alcohol Alcohol Intake: current Alcohol intake frequency: a few times a month Alcohol type: wine Substance Use Substance use: Occasionally Substance use type: marijuana Vital Signs and Lab Results Vital Signs Most Recent Vital Signs in EMR: Most Recent Vital Signs Temp Pulse Resp BP Pulse Ox 36.7 C 59 L 17 142/89 H 97 08/11/21 09:16 08/11/21 09:16 08/11/21 09:16 08/11/21 09:16 08/11/21 09:16 Lab Results Blood Type / Crossmatch: No Data to Display Complete Blood Count: No Data to Display Complete Metabolic Panel: No Data to Display Liver Function Panel: No Data to Display Coagulation Panel: No Data to Display Cardiac Panel: No Data to Display Arterial Blood Gas: No Data to Display Venous Blood Gas: No Data to Display Pancreas Panel: No Data to Display Thyroid Panel: No Data to Display Infectious Disease: No Data to Display Blood Cultures: No Data to Display Toxicology Panel: No Data to Display Panel: No Data to Display Anesthesia Assessment and Plan Anesthesia History Personal History: No History of Anesthesia Complications and Delayed Emergence Family History: No Family History of Anesthesia Complications Exercise Tolerance Exercise Tolerance: Metabolic Equivalents>4 Pertinent Negatives Pertinent Negatives: No Symptoms of GERD Cardiac & Pulmonary Exam Cardiac Exam: Normal S1/S2 Heart Sounds Pulmonary Exam: Clear Bilateral Breath Sounds Implantable Cardiac Device Does patient have a Pacemaker or an ICD?: No Airway Exam Known Difficult Airway: No Mallampati Class: 1 Mouth Opening: Normal (> 3cm) Thyromental Distance: Greater than 3 cm Neck Range of Motion: Full ROM Neck Circumference: Normal Teeth Condition: Normal Dentition ASA Classification ASA Score: ASA 2 Emergency Case?: No NPO Status NPO Status: NPO Clears >2 hours, Solids >8 hours Status Status: History of Hysterectomy Anesthesia Plan Resuscitation Status: Full Code Anesthesia Technique: General Anesthesia Airway Planned: Natural Airway Monitors Used: Standard Monitors
[2021-08-11 10:05] VITALS: BMI 35.7
[2021-08-11 10:47] VITALS: BP 131/80; PULSE 59; RESP 15; TEMP 36.3; O2SAT 97
--- NOTE | 2021-08-11 10:49 | W.ANESPOSTOP ---
Postoperative Evaluation Date, Time and Location Date Performed: 08/11/21 Time Performed: 09:49 Patient Location: Day Surgery Unit Vital Signs Most Recent Imported Vital Signs: Most Recent Vital Signs Temp Pulse Resp BP Pulse Ox 36.7 C 59 L 17 142/89 H 97 08/11/21 09:16 08/11/21 09:16 08/11/21 09:16 08/11/21 09:16 08/11/21 09:16 Most Recent Manually Entered Vital Signs: Adult Blood Pressure: 131/80 Heart Rate: 59 Respirations: 15 Oxygen Saturation (%): 94 Temperature (C): 36.3 C Pain Score (0-10 Scale): 0 Pain Score Most Recent Pain Score: Most Recent Pain Score Pain Level 0 08/11/21 09:16 Assessment Mental Status: Awake (Alert & Oriented to Patient Baseline) Airway and Respiratory Function: Patent airway with normal (patient baseline) respiratory exam Cardiovascular Function: Hemodynamically Stable Hydration Status: Adequately Hydrated Nausea & Vomiting: No Nausea or Vomiting Pain: Pt. Denies Any Pain Peripheral Nerve Block: Patient did not receive a nerve block
[2021-08-11 10:51] VITALS: BP 131/80; PULSE 59; RESP 15; TEMPC 36.3; O2SAT 94
[2021-08-11 11:10] VITALS: BP 127/81; PULSE 54; RESP 16; TEMP 36.5; O2SAT 99
== END 2021-08-11 11:40 | disposition home or self-care (01) ==
LOC: SUR 08:58
PROVIDERS: PCP Family Medicine; Visit Provider Surgery
PROC: 0DJD8ZZ Inspection of Lower Intestinal Tract, Via Natural or Artificial Opening Endoscopic (ICD-10-PCS; CPT 45378; principal; 2021-08-11 09:45)
DX: Z12.11 Encounter for screening for malignant neoplasm of colon (principal); D64.9 Anemia, unspecified; R73.01 Impaired fasting glucose; E66.9 Obesity, unspecified; F32.A Depression, unspecified; Z68.35 Body mass index [BMI] 35.0-35.9, adult
CPT/HCPCS: 45378

== ENCOUNTER 2021-11-22 18:31 | Outpatient (REF) | payer BC, SELFPAY ==
[2021-11-22 16:12] LABS: ALT 23 U/L (14-59); AST 14 U/L (15-37); Albumin 3.5 g/dL (3.4-5.0); Alkaline Phosphatase 62 U/L (46-116); Anion Gap 8.3 mmol/L (3-11); BUN 18 mg/dL (7-18); Bilirubin, Total 0.5 mg/dL (0.2-1.0); CO2 29.7 mmol/L (21.0-32.0); CREATININE 0.9 mg/dL (0.55-1.02); Calcium 8.7 mg/dL (8.5-10.1); Calculated LDL 142 mg/dL (<100); Chloride 101 mmol/L (98-107); Cholesterol 219 mg/dL (<200); Estimated GFR 77.88 (mL/min/1.73m2); Glucose 106 mg/dL (74-106); HDL Cholesterol 52 mg/dL (40-60); Potassium 4.4 mmol/L (3.5-5.1); Sodium 139 mmol/L (136-145); Total Protein 7.1 g/dL (6.4-8.2); Triglyceride 129 mg/dL (<150)
[2021-11-22 16:18] LABS: HCT 45.3 % (36.0-46.0); HGB 15.7 g/dL (11.2-15.7); MCH 29.7 pg (27.0-33.0); MCHC 34.7 % (32.0-36.0); MCV 86 fL (80-95); MPV 11.1 fL (8.0-11.0); Platelet Count 192 10^3/uL (130-400); RBC 5.28 10^6/uL (3.93-5.22); RDW 11.5 % (11.7-14.6); RDW-SD 36.2 fL; WBC 6.29 10^3/uL (4.4-10.8)
[2021-11-22 16:51] LABS: Hemoglobin A1C 5.4 % (<5.7)
== END 2021-11-22 18:32 | disposition home or self-care (01) ==
LOC: NCHCN 18:31
PROVIDERS: PCP Family Medicine; Visit Provider Family Medicine
DX: Z00.00 Encounter for general adult medical examination without abnormal findings (principal); E03.9 Hypothyroidism, unspecified; E66.9 Obesity, unspecified; R73.01 Impaired fasting glucose; D64.9 Anemia, unspecified
CPT/HCPCS: 80053; 80061; 85027; 83036; 84443

== ENCOUNTER 2022-05-22 10:43 | Outpatient (REF) | payer BC, SELFPAY ==
[2022-05-22 15:18] LABS: TSH 1.52 uIU/mL (0.36-3.74)
== END 2022-05-22 10:44 | disposition home or self-care (01) ==
LOC: NCHCN 10:43
PROVIDERS: PCP Family Medicine; Visit Provider Family Medicine
DX: E03.9 Hypothyroidism, unspecified (principal)
CPT/HCPCS: 84443

== ENCOUNTER 2022-06-22 16:11 | Emergency (ER) | payer BC, SELFPAY ==
[2022-06-22 16:15] VITALS: BP 181/115; PULSE 71; RESP 16; TEMP 36.9; O2SAT 98
--- NOTE | 2022-06-22 16:45 | DI.RAD_ITS ---
Exam(s) XR FOOT RT COMPLETE EXAM: XR FOOT RT COMPLETE CLINICAL HISTORY: trauma. TECHNIQUE: 2D digital imaging was performed. Three views. COMPARISON: No exams were available for comparison FINDINGS: BONES: Comminuted fracture s noted of the distal phalanx of the great toe. No significant separation or angulation. Fractures. No bony destructive lesion is seen. JOINTS: No dislocation present. SOFT TISSUE: Normal. IMPRESSION: Comminuted fracture of the distal phalanx of the great toe. DATA REPOSITORY: RADIATION DOSE DELIVERED:
--- NOTE | 2022-06-22 16:53 | NUR.NOTE ---
Nursing Note:Provider used Lidocaine to numb great toe and a bovie to drill a hole into the nail to drain the blood trapped. Pt tolerated well.
--- NOTE | 2022-06-22 16:57 | W.ED.GENAD ---
Discharge Plan Disposition Patient Disposition: Home Discharge Details Clinical Impression: Fracture of toe, closed, Subungual hematoma of great toe of right foot Primary Care Provider: Rony Stallings ED Provider: Haim Rios and New Rx's Prescriptions: New cephalexin 500 mg capsule 500 mg PO TID Qty: 14 0RF Continued levothyroxine 200 mcg capsule 200 mcg PO .complex Rx Instructions: one tab by mouth Saturday, Saturday, Saturday bupropion HCl 75 mg tablet 75 mg PO DAILY Rx Instructions: administer 6 hours apart ibuprofen 800 mg tablet 800 mg PO Q8H PRNQty: 20 0RF levothyroxine 175 mcg tablet See Rx Instructions .ROUTE .COMPLEX Patient Comments: TAKE ONE TABLET BY MOUTH DIRECTED ON SATURDAY, SATURDAY, SATURDAY & SATURDAY Rx Instructions: 175 mcg orally every Saturday, Saturday, , Saturday Discharge Instructions Instructions: Toe Fracture (ED) Additional Instructions: You were seen after an injury to your right foot. Injury seems to be isolated to your big toe and second toe. A subungual hematoma was drained here. X-ray reveals comminuted fracture of the tuft of the big toe. Please check with primary care regarding tetanus status. We will start you on antibiotic given that I had to trephinate your nail and potentially could introduce infection, though unlikely. You should wear the walking boot supplied until followed up by podiatry. Keep your foot elevated this weekend. You may apply ice on and off to help with pain and swelling. Alternate acetaminophen with ibuprofen. Return to ED for any significantly worsening pain, fever, redness, other concerns. Referrals: [facility] DPM [[facility]YSICIAN] - 5 days HPI General Mode of arrival: ambulatory. Date/Time Provider Initiated Documentation: 06/22/22 16:56. Limitations to Documentation: no limitations. Information obtained by: patient. Related Data Home Medications Medication Instructions Recorded Confirmed ibuprofen 800 mg tablet 800 mg PO Q8H PRN #20 tabs 09/23/19 06/22/22 bupropion HCl 75 mg tablet 75 mg PO DAILY 01/11/21 06/22/22 levothyroxine 200 mcg capsule 200 mcg PO .complex 01/11/21 06/22/22 cephalexin 500 mg capsule 500 mg PO TID #14 caps 06/22/22 levothyroxine 175 mcg tablet See Rx Instructions .Route .COMPLEX 06/22/22 06/22/22 Previous Rx's Medication Instructions Recorded ibuprofen 800 mg tablet 800 mg PO Q8H PRN #20 tabs 09/23/19 cephalexin 500 mg capsule 500 mg PO TID #14 caps 06/22/22 Allergies Allergy/AdvReac Type Severity Reaction Status Date / Time shellfish derived Allergy Verified 06/22/22 16:20 General Stated Complaint: Orthopedic STACY: 3 PFSH All Active Problems (Updated 06/22/22 @ 17:41 by Haim Rios MD) Screening for colon cancer (Acute) Fracture of toe, closed (Acute) Subungual hematoma of great toe of right foot (Acute) Medical History Anemia Depression DUB (dysfunctional uterine bleeding) Endocervical polyp Endometrial polyp Hypoglycemia Hypothyroidism Impaired fasting glucose IUD complication IUD contraception Obesity (BMI 30.0-34.9) Pelvic pain Pre-op testing Sebaceous cyst scalp, removed 09/15/18 Dr Lilibeth Garrison, no path sent Urine blood Uterine fibroid Surgical History History of dilatation and curettage 4 procedures History of hysteroscopy S/P laparoscopic assisted vaginal hysterectomy (LAVH) Social History Smoking/Tobacco Use Status: Never Smoking risk assessment performed?: Yes Alcohol Intake: current Alcohol Intake frequency: a few times a month Alcohol type: beer, wine and hard liquor Drug use: Occasionally Substance use type: marijuana Details: edibles very rarely. Do you feel safe at home: Yes Do you feel safe in your relationship?: Yes Course Vital Signs Vital signs: Vital Signs Temperature 98.4 F 06/22/22 16:15 Pulse 71 06/22/22 16:15 Respiratory Rate 16 06/22/22 16:15 Blood Pressure 181/115 H 06/22/22 16:15 Pulse Oximetry 98 06/22/22 16:15 Temperature 98.4 F 06/22/22 16:15 Temperature Source Oral 06/22/22 16:15 Pulse 71 06/22/22 16:15 Respiratory Rate 16 06/22/22 16:15 Respiratory Effort Normal, Non-Labored 06/22/22 16:31 Blood Pressure 181/115 H 06/22/22 16:15 Blood Pressure Position Sitting 06/22/22 16:15 Pulse Oximetry 98 06/22/22 16:15 Oxygen Delivery Method Room Air 06/22/22 16:15 Oxygen Flow Rate 0 06/22/22 16:15 Pain Level 8 06/22/22 16:25 Procedures Nail Trephination Time out: Yes Location (toes): first digit Sterile prep: other (alcohol) Method of drainage: nail cautery Procedure successful: Yes Patient tolerated procedure: no complications Nerve Block Nerve Block 1: Time out performed: Yes Local Anesthetic: Lidocaine 1% Amount of anesthesia used (mL): 3 Side: right Nerve Blocks: digital Procedure Successful: Yes Patient Tolerated Procedure: well Complications: none PAWSS Have you Been Recently Intoxicated or Drunk Within the Last 30 days?: No Have you Ever Experienced Previous Episodes of Alcohol Withdrawal?: No Have you ever Experienced Withdrawal Seizures?: No Have you ever Experienced Delirium Tremens(DT)s?: No Have you ever undergone Alcohol Rehabilitation Treatment (i.e, inpt ot outpatient treatment programs)?: No Have you ever Experienced Blackouts?: No Have you ever Combined Alcohol with other Downers within the last 90 days?: No Have you ever Combined Alcohol with any other Substance of Abuse during the last 90 days?: No Positive Blood Alcohol level on Presentation? [PCS.BAL]: No Evidence of Increased Autonomic Activity (i.e. HR>120, tremor, sweating, agitation, nausea)?: No Result: 0
--- NOTE | 2022-06-22 17:15 | DI.VRAD_ITS ---
PROCEDURE INFORMATION: Exam: XR Right Foot Exam date and time: 06/22/2022 5:08 PM Age: 51 years old Clinical indication: Other: Trauma TECHNIQUE: Imaging protocol: Radiologic exam of the right foot. Views: 3 or more views. COMPARISON: No relevant prior studies available. FINDINGS: Bones/joints: The bones are well mineralized. The joint spaces are preserved. Nondisplaced transverse fracture shaft of the distal first phalanx in an other fracture of the tuft. Remainder of the phalanges and metatarsals are intact. Soft tissues: Mild distal first soft tissue swelling. IMPRESSION: Nondisplaced fractures of the first distal phalanx. Dictated and Authenticated by: Avni Schmid MD. Ordering:HARRY Whitmore MD
[2022-06-22] MEDS: Cephalexin 500 MG CAP PO (17:55)
[2022-06-22 17:56] VITALS: BP 181/115; PULSE 71; RESP 16; TEMP 36.9; O2SAT 98
== END 2022-06-22 17:59 | disposition home or self-care (01) ==
PROVIDERS: Emergency Provider Emergency Medicine; PCP Family Medicine
DX: S92.491A Other fracture of right great toe, initial encounter for closed fracture (principal); S90.121A Contusion of right lesser toe(s) without damage to nail, initial encounter; W20.8XXA Other cause of strike by thrown, projected or falling object, initial encounter; R03.0 Elevated blood-pressure reading, without diagnosis of hypertension
CPT/HCPCS: 11740; 99283; 73630; 99284

== ENCOUNTER 2022-07-11 01:35 | Outpatient (CLI) | payer BC, SELFPAY ==
--- NOTE | 2022-07-11 | DI.MAMMO_ITS ---
Exam(s) MAMMO SCREENING EXAM: MAMMO SCREENING CLINICAL HISTORY: SCREENING, Z12.31 TECHNIQUE: Bilateral full field digital CC and MLO mammographic images were obtained with 3D tomosyn thesis and utilizing computer aided detection (CAD). COMPARISON: Available for comparison. FINDINGS: Masses/Architectural Distortion: None seen. Microcalcifications: There is a new collection of microcalcifications in the upper-outer quadrant of the right breast. Skin Thickening/Nipple Retraction: None. IMPRESSION: 1. New collection of microcalcifications in the upper outer quadrant of the right breast. 2. Further evaluation with spot magnification views is requested. BI-RADS Category 0 - Assessment Incomplete: Need additional imaging evaluation Breast Density - Category B - Scattered areas of fibroglandular density Breast density category C or D implies that the patient has dense breast tissue. Dense breast tissue is very common and is not abnormal but dense breast tissue can make it harder to find cancer on a ma mmogram. Also, dense breast tissue may increase their breast cancer risk. This information about the result of the mammogram report was provided to the patient to raise their awareness. Use this report when you speak with the patient about their risks for breast cancer, which includes their family hist ory. At that time, you may recommend for more screening tests (Ultrasound or MRI) as they might be us eful based on their risk. A negative radiographic report should not delay biopsy if a dominant or clinically suspicious mass is present. Up to ten percent of cancers are not identified on mammography. A negative report may reinforce clinical impression. Adenosis and dense breasts may obscure an underlying neoplasm. False positive reports average 6 to 10%. Patient will receive a letter notifying them of these results.
== END 2022-07-11 01:55 ==
LOC: DI 01:35
PROVIDERS: PCP Family Medicine; Visit Provider Family Medicine
DX: Z12.31 Encounter for screening mammogram for malignant neoplasm of breast (principal); R92.8 Other abnormal and inconclusive findings on diagnostic imaging of breast
CPT/HCPCS: 77063; 77067

== ENCOUNTER 2022-07-18 00:54 | Outpatient (CLI) | payer BC, SELFPAY ==
--- NOTE | 2022-07-18 13:41 | DI.MAMMO_ITS ---
Exam(s) MAMMO SCREEN CALL BACK UNI EXAM: MAMMO SCREEN CALL BACK UNI CLINICAL HISTORY: MICROCALCIFICATIONS IN UPPER OUTER QUADRANT OF RT BREAST TECHNIQUE: Spot compression magnification views were performed of the and superior portions of the b reast. . COMPARISON: Recent exam of 11 Jul 2022 which showed a new cluster of calcifications in the upper oute r quadrant. Other exams back to 2014 were also reviewed. FINDINGS: Magnification views demonstrate a cluster of multiple calcifications in the upper outer quadrant, in the anterior tissue. They are new from prior exams and show mild variability size. An additional cl uster of calcifications is seen closer to the nipple with 5-6 calcifications. Other scattered calcif ications are noted. There are no associated masses. IMPRESSION: New calcifications in the upper outer quadrant with mildly suspicious appearance. These appear to be amenable to stereotactic biopsy. BI-RADS Cat 4 - Suspicious Abnormality: Biopsy should be considered Breast Density - Category B, scattered fibroglandular densities. The findings were discussed with the patient as well as Yeni Hartman NP.
== END 2022-07-18 01:14 ==
PROVIDERS: PCP Family Medicine; Visit Provider Family Medicine
DX: R92.8 Other abnormal and inconclusive findings on diagnostic imaging of breast (principal)
CPT/HCPCS: 77063; 77067

== ENCOUNTER 2022-08-02 11:43 | Outpatient (CLI) | payer BC, SELFPAY ==
--- NOTE | 2022-08-02 11:00 | DI.RAD_ITS ---
Exam(s) XR TOE RT GREAT EXAM: XR TOE RT GREAT CLINICAL HISTORY: HALLUX FX R GREAT TOE. TECHNIQUE: 2D digital imaging was performed of the right toe. Three images were obtained. AP, obli que and lateral views were obtained. COMPARISON: CR,XR XR FOOT RT COMPLETE from 06/22/2022 FINDINGS: BONES: There is again seen a comminuted fracture of the distal phalanx of the great toe. There is 3 mm plantar displacement of the distal fracture fragment appreciated on the lateral view. Lucencies a re seen in the distal phalanx of the 2nd toe which may represent a nondisplaced fracture. This is un changed. No bony destructive lesion is seen. JOINTS: No dislocation present. The joint spaces are well maintained. SOFT TISSUE: There is soft tissue swelling of the great toe. IMPRESSION: Comminuted fracture involving the distal phalanx of the great toe. DATA REPOSITORY: RADIATION DOSE DELIVERED:
== END 2022-08-02 11:44 | disposition home or self-care (01) ==
LOC: DIORS 11:44
PROVIDERS: PCP Family Medicine; Referring Provider Family Medicine; Visit Provider Physician Assistant
DX: S92.401A Displaced unspecified fracture of right great toe, initial encounter for closed fracture (principal); X58.XXXA Exposure to other specified factors, initial encounter
CPT/HCPCS: 73660

== ENCOUNTER 2022-11-30 02:22 | Outpatient (CLI) | payer BC, SELFPAY ==
[2022-11-30 08:58] LABS: Hemoglobin A1C 5.3 % (<5.7)
[2022-11-30 09:24] LABS: ALT 21 U/L (14-59); AST 16 U/L (15-37); Albumin 3.6 g/dL (3.4-5.0); Alkaline Phosphatase 58 U/L (46-116); BUN 7 mg/dL (7-18); Bilirubin, Total 0.5 mg/dL (0.2-1.0); CREATININE 0.9 mg/dL (0.55-1.02); Calcium 9.2 mg/dL (8.5-10.1); Calculated LDL 85 mg/dL (<100); Chloride 101 mmol/L (98-107); Cholesterol 156 mg/dL (<200); Estimated GFR 76.92 (mL/min/1.73m2); Glucose 101 mg/dL (74-106); HDL Cholesterol 62 mg/dL (40-60); Sodium 137 mmol/L (136-145); Total Protein 7.4 g/dL (6.4-8.2); Triglyceride 47 mg/dL (<150)
[2022-12-04 10:41] LABS: TSH 0.08 uIU/mL (0.36-3.74)
== END 2022-11-30 02:23 | disposition home or self-care (01) ==
LOC: LBO 02:30
PROVIDERS: PCP Family Medicine; Visit Provider Family Medicine
DX: R73.03 Prediabetes (principal); E03.9 Hypothyroidism, unspecified; D05.11 Intraductal carcinoma in situ of right breast; E66.9 Obesity, unspecified
CPT/HCPCS: 36415; 80053; 80061; 83036; 84443

== ENCOUNTER 2023-06-04 22:45 | Outpatient (REF) | payer SELFPAY ==
[2023-06-04 16:23] LABS: TSH 1.73 uIU/Ml (0.36-3.74)
== END 2023-06-04 22:46 | disposition home or self-care (01) ==
LOC: NCHCN 22:45
PROVIDERS: PCP Family Medicine; Referring Provider Family Medicine; Visit Provider Family Medicine
DX: E03.9 Hypothyroidism, unspecified (principal)
CPT/HCPCS: 84443

== ENCOUNTER 2023-12-09 08:27 | Outpatient (REF) | payer SELFPAY ==
[2023-12-09 14:46] LABS: Anion Gap 4.4 mmol/L (3-11); BUN 14 mg/dL (7-18); CO2 30.6 mmol/L (21.0-32.0); CREATININE 0.9 mg/dL (0.55-1.02); Calcium 9.1 mg/dL (8.5-10.1); Chloride 104 mmol/L (98-107); Estimated GFR 76.44 (mL/min/1.73m2); Glucose 103 mg/dL (74-106); Potassium 4.5 mmol/L (3.5-5.1); Sodium 139 mmol/L (136-145); TSH 1.29 uIU/Ml (0.36-3.74)
[2023-12-09 15:10] LABS: Hemoglobin A1C 5.1 % (<5.7)
== END 2023-12-09 08:28 | disposition home or self-care (01) ==
LOC: NCHCN 08:27
PROVIDERS: PCP Family Medicine; Visit Provider Family Medicine
DX: E03.9 Hypothyroidism, unspecified (principal)
CPT/HCPCS: 80048; 83036; 84443